=== PATIENT | female | born 1990 | race Caucasian/White ===

== ENCOUNTER 2018-04-26 07:26 | Inpatient (IN) | payer OTHER ==
--- NOTE | 2018-04-26 07:47 | L&D Progress Notes ---
PROGRESS NOTES Datetime Report Generated by CPN: 04/26/2018 07:47 PROGRESS NOTE Impression Other: seizure at home Procedures- Other: monitor Plan: Continue Present Management Plan Other: IV and PIH labs Vital Signs : Reviewed; Within Normal Limits Comment: Pt presented to the ED via ambulance secondary to a witnessed seizure. Pt states that she had a "massive " RUIZ for the past 2 days. According to her , she was sleeping and sat up and said that she could not control her arms. Her laid her on her side, she was biting her tongue, voided on her self and was unresponsive for 5-10 miniutes. She is post-ictal and her memory is slowly returning. No history of pre-ecalmpsia or BP issues with this . MEMBRANES Membranes: Intact FETUS A FHR - Baseline: 140s Monitoring: External US Variability: Moderate 6-25bpm Accelerations: 15X15 Decelerations: None FHR Category: Category I : 36.1 SIGNATURE SIGNATURE: [id number] Signature: with User ID: [email or web address]
[2018-04-26] MEDS ORDERED: MAGNESIUM SULFATE 8 GM/200 ML RTUPB IV ONE (07:55)
--- NOTE | 2018-04-26 08:03 | Admission Physical ---
Datetime Report Generated by CPN: 04/26/2018 08:03 CURRENT ADMISSION Chief Complaint Other: seizure Indication for Induction: Eclampsia - Severe Admit Impression : , Intrauterine Admit Plan: Admit to Unit; Initiate Labor Induction Protocol ALLERGIES Medication Allergies: No Latex: No Latex Allergies OBSTETRICAL HISTORY EDC: 05/23/2018 00:00 : 2 Para: 1 Term: 1 Gestational Diabetes: No Rh Sensitization: No Incompetent Cervix: No LEON: No Infertility: No ART Treatment: No Uterine Anomaly: No IUGR: No Hx Previous C/S: No Macrosomia: No Hx Loss/Stillborn: No PIH: No Hx : No Placenta Previa/Abruption: No Depression/PP Depression: No PTL/PROM: No Post Hemorrhage: No Obstetrical History Comments: 2012 no complications G2- current SEE RECORDS Alcohol: No Marijuana : No Cocaine: No Other Illicit Drugs: No Cigarettes: Never Smoker. [id number] MEDICAL HISTORY Diabetes: No Blood Transfusion: No Pulmonary Disease (Asthma, TB): No Breast Disease: No Hypertension: No Voice Over Announcer Surgery: No Heart Disease: No Hosp/Surgery: No Autoimmune Disorder: No Anesthetic Complications: No Kidney Disease: No Abnormal Pap Smear: No Neuro/Epilepsy: No Psychiatric Disorders: No Other Medical Diseases: No Hepatitis/Liver Disease: No Significant Family History: No Varicosities/Phlebitis: No Trauma/Violence : No Thyroid Dysfunction: No INFECTIOUS HISTORY Gonorrhea: No Genital Herpes: No Chlamydia: No Tuberculosis: No Syphilis: No Hepatitis: No HIV/AIDS Exposure: No Rash or Viral Illness: No HPV: No PHYSICAL EXAM General: Normal HEENT: Normal Neurologic: Normal Thyroid: Normal Heart: Normal Lungs: Normal Breast: Normal Back: Normal Abdomen: Normal Genitourinary Exam: Normal Extremities: Normal DTRs: Normal Pelvic Type: Adequate Vital Signs: Reviewed; Within Normal Limits MEMBRANES Membranes: Intact FETUS A Monitoring: External US FHR- Baseline: 130-140s Variability: Moderate 6-25bpm Accelerations: 15X15 Decelerations: None Admit Comment: Start MgSO4; admit INFORMED CONSENT Signature: with User ID: [email or web address]
[2018-04-26] MEDS ORDERED: MAGNESIUM SULFATE 20 GM/500 ML RTUINJ IV ONE ×2 (08:04→19:14)
[2018-04-26] MEDS ORDERED: PENICILLIN G-K 5 MILLION UNIT VIAL ONE ×4 (08:07→21:20)
[2018-04-26] MEDS ORDERED: OXYTOCIN/NORMAL SALINE 20 UNIT/1,000 ML RTUINJ ONE ×2 (08:07→23:28)
[2018-04-26] MEDS ORDERED: RINGERS SOLUTION,LACTATED 300 ML IV ONE (08:08)
[2018-04-26] MEDS ORDERED: OXYTOCIN/NORMAL SALINE 20 UNIT/1,000 ML RTUINJ IV PRN ×2 (08:08→23:38)
[2018-04-26] MEDS: MAGNESIUM SULFATE 4 GM/100 ML RTUPB IV ONE ×2 (08:08→11:43)
[2018-04-26] MEDS ORDERED: RINGERS SOLUTION,LACTATED 1,000 ML IV PRN (08:08)
[2018-04-26 08:32] LABS: ABSOLUTE EOSINOPHILS # (AUTO) 0.2 10^3/uL (0.0-0.6); ABSOLUTE LYMPHOCYTES (AUTO) 1.7 10^3/uL (0.5-4.7); ABSOLUTE MONOCYTES (AUTO) 0.8 10^3/uL (0.1-1.4); ABSOLUTE NEUT (AUTO) 8.8 10^3/uL (1.7-8.2); BASOPHILS % (AUTO) 0.4 % (0-2); EOSINOPHILS % (AUTO) 1.5 % (0-6); HEMATOCRIT 34.4 % (36.0-47.0); HEMOGLOBIN 11.5 g/dL (12.0-15.5); LYMPHOCYTES % (AUTO) 14.8 % (13-45); MEAN CORPUSCULAR HEMOGLOBIN 25.1 pg (27.0-33.4); MEAN CORPUSCULAR HGB CONC 33.5 g/dL (32.0-36.0); MEAN CORPUSCULAR VOLUME 75 fl (80-97); PLATELET COUNT 223 10^3/uL (150-450); RED CELL DISTRIBUTION WIDTH 14.1 % (11.5-14.0); SEGMENTED NEUTROPHILS % (AUTO) 76.3 % (42-78); TOTAL CELLS COUNTED % (AUTO) 100 %; WHITE BLOOD COUNT 11.5 10^3/uL (4.0-10.5)
[2018-04-26 08:49] LABS: ALANINE AMINOTRANSFERASE 22 U/L (9-52); ALBUMIN 3.1 g/dL (3.5-5.0); ALKALINE PHOSPHATASE 169 U/L (38-126); ANION GAP 10 (5-19); ASPARTATE AMINO TRANSFERASE 35 U/L (14-36); BILIRUBIN,DIRECT 0.1 mg/dL (0.0-0.4); BILIRUBIN,TOTAL 0.2 mg/dL (0.2-1.3); BLOOD UREA NITROGEN 16 mg/dL (7-20); CALCIUM 9.1 mg/dL (8.4-10.2); CARBON DIOXIDE 19 mmol/L (22-30); CHLORIDE 108 mmol/L (98-107); GLUCOSE 86 mg/dL (75-110); POTASSIUM 4.3 mmol/L (3.6-5.0); SODIUM 136.7 mmol/L (137-145); TOTAL PROTEIN 5.8 g/dL (6.3-8.2)
[2018-04-26] MEDS ORDERED: NALBUPHINE HCL INJ 10 MG/1 ML AMPULE ONE (09:16)
[2018-04-26 09:41] LABS: URINE CREATININE 134.4 mg/dL (16-327)
[2018-04-26] MEDS ORDERED: NALBUPHINE HCL INJ 10 MG/1 ML AMPULE INJ ONE (09:48)
[2018-04-26] MEDS ORDERED: PENICILLIN G POTASSIUM 5,000,000 UNIT in DEXTROSE 5%-WATER 100 ML IV ONE (09:49)
[2018-04-26] MEDS ORDERED: MAGNESIUM SULFATE 20 GM/500 ML RTUINJ IV PRN (09:54)
[2018-04-26 10:16] LABS: APPEARANCE,URINE CLOUDY; BILIRUBIN,URINE NEGATIVE (NEGATIVE); GLUCOSE, URINE NEGATIVE (NEGATIVE); KETONES,URINE NEGATIVE (NEGATIVE); LEUKOCYTE ESTERASE,URINE NEGATIVE (NEGATIVE); NITRITE,URINE NEGATIVE (NEGATIVE); PROTEIN,URINE >=500 mg/dL (NEGATIVE); URINE SPECIFIC GRAVITY 1.034; UROBILINOGEN,URINE NEGATIVE mg/dL (<2.0)
[2018-04-26 10:17] LABS: COLOR,URINE YELLOW
[2018-04-26 10:52] LABS: PARTIAL THROMBOPLASTIN TIME 26.6 SEC (23.5-35.8); PROTHROMBIN TIME 12.6 SEC (11.4-15.4)
[2018-04-26] MEDS ORDERED: MISOPROSTOL 0.2 MG TABLET ONE ×2 (10:55→23:35)
[2018-04-26] MEDS ORDERED: LIDOCAINE 1% INJ-PF (10 MG/ML) 30 ML SDV ONE (10:55)
[2018-04-26 10:57] LABS: URINE AMPHETAMINES SCREEN NEGATIVE; URINE BARBITURATES SCREEN NEGATIVE; URINE COCAINE SCREEN NEGATIVE; URINE MARIJUANA (THC) SCREEN NEGATIVE; URINE METHADONE SCREEN NEGATIVE; URINE PHENCYCLIDINE SCREEN NEGATIVE
[2018-04-26 11:00] LABS: URINE BENZODIAZEPINES SCREEN NEGATIVE
[2018-04-26 11:17] LABS: UR PRO/CREAT RATIO RESULT 27.6 mg/mg (0.0-0.2); URINE PROTEIN 3702.9 mg/dL (<12)
[2018-04-26 13:13] LABS: ABSOLUTE LYMPHOCYTES (AUTO) 0.9 10^3/uL (0.5-4.7); ABSOLUTE MONOCYTES (AUTO) 0.4 10^3/uL (0.1-1.4); ABSOLUTE NEUT (AUTO) 12.7 10^3/uL (1.7-8.2); BASOPHILS % (AUTO) 0.3 % (0-2); EOSINOPHILS % (AUTO) 0.1 % (0-6); HEMATOCRIT 35.7 % (36.0-47.0); LYMPHOCYTES % (AUTO) 6.2 % (13-45); MEAN CORPUSCULAR HGB CONC 33.5 g/dL (32.0-36.0); MEAN CORPUSCULAR VOLUME 75 fl (80-97); PLATELET COUNT 234 10^3/uL (150-450); RED BLOOD COUNT 4.78 10^6/uL (3.72-5.28); RED CELL DISTRIBUTION WIDTH 14.6 % (11.5-14.0); SEGMENTED NEUTROPHILS % (AUTO) 90.4 % (42-78); TOTAL CELLS COUNTED % (AUTO) 100 %
[2018-04-26] MEDS: PENICILLIN G POTASSIUM 2,500,000 UNIT in DEXTROSE 5%-WATER 50 ML IV SCH ×3 (13:20→21:27)
[2018-04-26 13:39] LABS: ALANINE AMINOTRANSFERASE 23 U/L (9-52); ALKALINE PHOSPHATASE 188 U/L (38-126); ANION GAP 10 (5-19); ASPARTATE AMINO TRANSFERASE 33 U/L (14-36); BILIRUBIN,DIRECT 0.1 mg/dL (0.0-0.4); BILIRUBIN,TOTAL 0.2 mg/dL (0.2-1.3); BLOOD UREA NITROGEN 15 mg/dL (7-20); CALCIUM 8.5 mg/dL (8.4-10.2); CARBON DIOXIDE 18 mmol/L (22-30); CHLORIDE 106 mmol/L (98-107); GLUCOSE 99 mg/dL (75-110); POTASSIUM 4.2 mmol/L (3.6-5.0); TOTAL PROTEIN 5.5 g/dL (6.3-8.2); URIC ACID 6.8 mg/dL (2.5-6.2)
[2018-04-26] MEDS ORDERED: ONDANSETRON HCL INJ/PF 4 MG/2 ML SDV IV PRN (13:53)
[2018-04-26] MEDS ORDERED: ONDANSETRON HCL INJ/PF 4 MG/2 ML SDV ONE (13:53)
[2018-04-26] MEDS ORDERED: EPHEDRINE SULFATE INJ 50 MG/1 ML AMPULE ONE (14:11)
[2018-04-26] MEDS ORDERED: FENTANYL/BUPIVACAINE/NS/PF 300 MCG/150 ML RTUINJ EPI ONE (14:12)
[2018-04-26] MEDS ORDERED: BUPIVACAINE HCL 0.25 % INJ/PF (2.5 MG/1 ML) 30 ML VIAL ONE (14:12)
--- NOTE | 2018-04-26 15:00 | L&D Progress Notes ---
PROGRESS NOTES Datetime Report Generated by Robbie: 04/26/2018 15:00 PROGRESS NOTE Impression: Normal Progression of Labor; Reassuring Heart Rate Procedures: Sterile Vag Exam Plan: Continue Present Management; Induction; Cervical Ripening Informed Consent Obtained: Vaginal Delivery; Induction of Labor Vital Signs : Reviewed Comment: IOL for ecclampsia with Cooks catheter and pitocin. Reviewed history with family and reviewed need for delivery due to ecclampsia. Pt is having regular uterine ctx. Continue with IOL. Anesthesia aware patient is post ictal and we are proceeding with IOL. Coag labs pending. (Annotations: Data stored by Robbie on behalf of user) VAGINAL EXAM Dilatation: 2 Effacement: 50 Station: -2 Contractions: q 2-3 Dilitation: 2.0 Effacement: 50 Station: -2 Contractions: irritability MEMBRANES Membranes: Intact FETUS A FHR - Baseline: 125 Monitoring: External US Variability: Moderate 6-25bpm Accelerations: 15X15 Decelerations: None FHR Category: Category I FHR Comments: CAT I : 36.1 FETUS C SIGNATURE: [id number];[id number] SIGNATURE: [id number] Signature: with User ID: [email or web address]
--- NOTE | 2018-04-26 17:34 | L&D Progress Notes ---
PROGRESS NOTES Datetime Report Generated by CPN: 04/26/2018 17:33 PROGRESS NOTE Impression: Normal Progression of Labor; Reassuring Heart Rate Procedures: Sterile Vag Exam Plan: Continue Present Management; Induction Informed Consent Obtained: Vaginal Delivery; Induction of Labor Vital Signs : Reviewed Comment: called to eval pt she thought her water broke. On exam membranes felt throughout. Attempted to AROM with amnihook but due to patient discomfort unable to do so. However, upon patient sitting up significant fluid noted. SROM. clear fluid. Anticipate VAGINAL EXAM Dilatation: 5 Effacement: 70 Station: -3 Contractions: q 2-3 FETUS A FHR - Baseline: 120 Variability: Moderate 6-25bpm Accelerations: 15X15 Decelerations: None FHR Category: Category I FETUS C SIGNATURE: [id number];[id number] Signature: with User ID: [email or web address]
[2018-04-26] MEDS ORDERED: BUTALB/ACETAMINOPHEN/CAFFEINE 1 TAB EACH ONE (18:13)
[2018-04-26 19:46] LABS: ABSOLUTE MONOCYTES (AUTO) 0.5 10^3/uL (0.1-1.4); ABSOLUTE NEUT (AUTO) 13.5 10^3/uL (1.7-8.2); BASOPHILS % (AUTO) 0.1 % (0-2); HEMATOCRIT 37.4 % (36.0-47.0); HEMOGLOBIN 12.3 g/dL (12.0-15.5); LYMPHOCYTES % (AUTO) 6.9 % (13-45); MEAN CORPUSCULAR HEMOGLOBIN 24.8 pg (27.0-33.4); MEAN CORPUSCULAR VOLUME 75 fl (80-97); MONOCYTES % (AUTO) 3.5 % (3-13); PLATELET COUNT 249 10^3/uL (150-450); RED BLOOD COUNT 4.99 10^6/uL (3.72-5.28); RED CELL DISTRIBUTION WIDTH 14.6 % (11.5-14.0); SEGMENTED NEUTROPHILS % (AUTO) 89.5 % (42-78); TOTAL CELLS COUNTED % (AUTO) 100 %; WHITE BLOOD COUNT 15.1 10^3/uL (4.0-10.5)
--- NOTE | 2018-04-26 20:02 | L&D Progress Notes ---
PROGRESS NOTES Datetime Report Generated by RISSA: 04/26/2018 20:02 PROGRESS NOTE Impression: Normal Progression of Labor Procedures- Other: labs Plan: Continue Present Management; Induction; Cervical Ripening Informed Consent Obtained: Vaginal Delivery; Induction of Labor; Risks, Benefits and Alternatives Discussed Vital Signs : Reviewed Comment: reviewed q 4-6 hours labs depending on results. CMP pending from 1900 but platlets are stable. Reviewed with patient and family that plan to have IM/Hospitalist see her tomorrow to evaluate for any other medical issues that could have contributed to her eclamptic seizure today. Also reviewed with patient and family that there is a risk of her having another seizure therefore will continue mag sulfate for 24 hours after delivery and monitor closely. Would recommend that she see Neurology at least once to evaluate for any further need for f/u (although there is increased relative risk of seizure disorder the absolute risk is low). THey are very concerned and have expressed displeasure with care received elsewhere therefore would reccommend to cover all bases. Will need to be discharged home on medication for BP or at the very least have very close f/u due to increased risk of relapse with preeclampsia/eclampsia. she is not in active labor yet with disfunctional contraction pattern. will continue with increase pitocin. reviewed Prot:Cr ratio very high 27.6 and also uric acid elevated. LFTs and Platlets stable and normal at this time. continue current management. VAGINAL EXAM Dilatation: 5 Effacement: 70 Station: -3 Contractions: irreg FETUS A FHR - Baseline: 12 Monitoring: External US Variability: Moderate 6-25bpm Accelerations: 15X15 Decelerations: None FHR Category: Category I FETUS C SIGNATURE: [id number];[id number] Signature: with User ID: [email or web address]
[2018-04-26 20:03] LABS: ALANINE AMINOTRANSFERASE 27 U/L (9-52); ALBUMIN 3.1 g/dL (3.5-5.0); ALKALINE PHOSPHATASE 195 U/L (38-126); ANION GAP 11 (5-19); ASPARTATE AMINO TRANSFERASE 34 U/L (14-36); BILIRUBIN,DIRECT 0.1 mg/dL (0.0-0.4); BILIRUBIN,TOTAL 0.2 mg/dL (0.2-1.3); BLOOD UREA NITROGEN 13 mg/dL (7-20); CALCIUM 8.2 mg/dL (8.4-10.2); CARBON DIOXIDE 19 mmol/L (22-30); CHLORIDE 103 mmol/L (98-107); GLUCOSE 106 mg/dL (75-110); POTASSIUM 4.9 mmol/L (3.6-5.0); SODIUM 132.9 mmol/L (137-145); TOTAL PROTEIN 5.7 g/dL (6.3-8.2); URIC ACID 6.5 mg/dL (2.5-6.2)
[2018-04-26] MEDS ORDERED: PSEUDOEPHEDRINE HCL 30 MG TABLET PO PRN (23:38)
[2018-04-26] MEDS ORDERED: DIPH/PERTUSS(ACELL)/TETANUS VAC/PF 0.5 ML SYR (>=10YO) IM PRN (23:38)
[2018-04-26] MEDS ORDERED: BENZOCAINE/MENTHOL AEROSOL SPRAY 56 ML TOP PRN (23:38)
[2018-04-26] MEDS ORDERED: PROMETHAZINE HCL 25 MG TABLET PO PRN (23:38)
[2018-04-26] MEDS ORDERED: MEASLES,MUMPS&RUBELLA VACC/PF 0.5 ML VIAL SUBCUT PRN (23:38)
[2018-04-26] MEDS ORDERED: NA PHOS,M-B/NA PHOS,DI-BA (ADULT) 133 ML ENEMA PR PRN (23:38)
[2018-04-26] MEDS ORDERED: DIPHENHYDRAMINE HCL 25 MG CAPSULE PO PRN (23:38)
[2018-04-26] MEDS ORDERED: GLYCERIN/WITCH HAZEL LEAF 1 EACH MED..PAD TP PRN (23:38)
[2018-04-26] MEDS ORDERED: DIBUCAINE 1% OINTMENT 28 GM TP PRN (23:38)
[2018-04-26] MEDS ORDERED: PROMETHAZINE HCL INJ 25 MG/1 ML VIAL IV PRN (23:38)
[2018-04-26] MEDS ORDERED: MISOPROSTOL 0.2 MG TABLET PR PRN (23:38)
[2018-04-26] MEDS ORDERED: PROMETHAZINE HCL 25 MG SUPP.RECT PR PRN (23:38)
[2018-04-26] MEDS ORDERED: ACETAMINOPHEN 325 MG TABLET PO PRN (23:38)
[2018-04-26] MEDS ORDERED: ACETAMINOPHEN WITH CODEINE #3 TABLET PO PRN ×2 (23:38)
[2018-04-26] MEDS ORDERED: MAGNESIUM HYDROXIDE SUSP 30 ML UDCUP PO PRN (23:38)
[2018-04-26] MEDS ORDERED: ZOLPIDEM TARTRATE 5 MG TABLET PO PRN (23:38)
[2018-04-27] MEDS ORDERED: ACETAMINOPHEN WITH CODEINE #3 TABLET ONE
[2018-04-27] MEDS ORDERED: IBUPROFEN 800 MG TABLET ONE
[2018-04-27] MEDS: MAGNESIUM SULFATE 20 GM/500 ML RTUINJ IV PRN ×2 (00:03→12:03)
[2018-04-27] MEDS ORDERED: HYDRALAZINE HCL INJ/PF 20 MG/1 ML SDV IV ONE (00:35)
[2018-04-27] MEDS ORDERED: HYDRALAZINE HCL INJ/PF 20 MG/1 ML SDV ONE (00:36)
[2018-04-27 07:20] LABS: HEMATOCRIT 32.3 % (36.0-47.0); HEMOGLOBIN 10.5 g/dL (12.0-15.5); MEAN CORPUSCULAR HEMOGLOBIN 24.6 pg (27.0-33.4); MEAN CORPUSCULAR HGB CONC 32.7 g/dL (32.0-36.0); MEAN CORPUSCULAR VOLUME 75 fl (80-97); PLATELET COUNT 265 10^3/uL (150-450); RED BLOOD COUNT 4.29 10^6/uL (3.72-5.28); RED CELL DISTRIBUTION WIDTH 14.7 % (11.5-14.0); WHITE BLOOD COUNT 17.7 10^3/uL (4.0-10.5)
[2018-04-27 07:39] LABS: ALANINE AMINOTRANSFERASE 29 U/L (9-52); ALBUMIN 2.3 g/dL (3.5-5.0); ALKALINE PHOSPHATASE 142 U/L (38-126); ANION GAP 5 (5-19); ASPARTATE AMINO TRANSFERASE 39 U/L (14-36); BILIRUBIN,DIRECT 0.1 mg/dL (0.0-0.4); BILIRUBIN,TOTAL 0.1 mg/dL (0.2-1.3); BLOOD UREA NITROGEN 11 mg/dL (7-20); CARBON DIOXIDE 21 mmol/L (22-30); CHLORIDE 104 mmol/L (98-107); GLUCOSE 99 mg/dL (75-110); POTASSIUM 4.6 mmol/L (3.6-5.0); SODIUM 130.1 mmol/L (137-145); TOTAL PROTEIN 4.6 g/dL (6.3-8.2); URIC ACID 6.3 mg/dL (2.5-6.2)
[2018-04-27 07:56] LABS: CALCIUM 6.8 mg/dL (8.4-10.2)
--- NOTE | 2018-04-27 08:19 | L&D Progress Notes ---
PROGRESS NOTES Datetime Report Generated by CPN: 04/27/2018 08:19 PROGRESS NOTE Impression: Eclampsia - Severe Plan: Continue Present Management Informed Consent Obtained: Risks, Benefits and Alternatives Discussed Vital Signs : Reviewed Comment: now . No further seizures. Will obtain CT scan for eval of head now that delivered. Pt is not diuresing yet. will need to continue magnesium until 24 hours pp. then will need to start BP meds and likely go home with BP meds. No e/o HELLP syndrome. will get hospitalist consult for help with management of electrolyte abnormalities as well. Would still recommend Neuro consult as outpatient pp. Pt is doing well. Continue current care for now. VAGINAL EXAM Dilitation: 10.0 Dilitation: 9.0 Dilitation: 6.0 Effacement: 100 Effacement: 90 Effacement: 80 Station: 1 Station: -1 Station: -1 FETUS C SIGNATURE: [id number];[id number] Signature: with User ID: [email or web address]
[2018-04-27] MEDS ORDERED: SENNOSIDES/DOCUSATE 8.6-50 MG 1 EACH TABLET ONE (09:22)
[2018-04-27] MEDS ORDERED: PRENATAL VITAMIN W DHA CAPSULE PO ONE (09:22)
[2018-04-27] MEDS ORDERED: FAMOTIDINE 20 MG TABLET ONE (09:22)
[2018-04-27] MEDS ORDERED: DOCUSATE SODIUM 100 MG CAPSULE ONE ×2 (09:22→18:03)
[2018-04-27] MEDS ORDERED: FERROUS SULFATE 325 MG TABLET PO ONE ×2 (09:23→18:04)
[2018-04-27] MEDS ORDERED: MAGNESIUM SULFATE 20 GM/500 ML RTUINJ IV ONE (09:46)
[2018-04-27] MEDS: DOCUSATE SODIUM 100 MG CAPSULE PO SCH ×2 (10:06→18:09)
[2018-04-27] MEDS: FAMOTIDINE 20 MG TABLET PO SCH (10:07)
[2018-04-27] MEDS: PRENATAL VITAMIN W DHA CAPSULE PO SCH (10:07)
[2018-04-27] MEDS: FERROUS SULFATE 325 MG TABLET PO SCH ×2 (10:08→18:10)
[2018-04-27] MEDS: SENNOSIDES/DOCUSATE 8.6-50 MG 1 EACH TABLET PO SCH (10:08)
--- NOTE | 2018-04-27 14:36 | RADIOLOGY REPORT (SQ) ---
EXAM DESCRIPTION: CT HEAD WITH COMPLETED DATE/TIME: 04/27/2018 2:23 pm REASON FOR STUDY: Eclamptic Seizure yesterday, now COMPARISON: None. TECHNIQUE: Axial images acquired through the brain both prior to and following the uncomplicated adm inistration of intravenous contrast. Images reviewed with bone, brain and subdural windows. Addition al sagittal and coronal reconstructions were generated. Images stored on PACS. All CT scanners at this facility use dose modulation, iterative reconstruction, and/or weight based d osing when appropriate to reduce radiation dose to as low as reasonably achievable (ALARA). [facility]: Dose Right [facility]: CareDose [facility]: Dose Right [facility]: Teradose 4D [facility]: [employer] CONTRAST TYPE AND DOSE: contrast/concentration: Isovue 350.00 mg/ml; Total Contrast Delivered: 50.0 ml; Total Saline Delivered: 51.0 ml RENAL FUNCTION: None required. The patient is less than 50 years old. RADIATION DOSE: CT Rad equipment meets quality standard of care and radiation dose reduction techniq ues were employed. CTDIvol: 48.6 - 48.7 mGy. DLP: 2003 mGy-cm.. LIMITATIONS: None. FINDINGS: VENTRICLES: Normal size and contour. CEREBRUM: There is a subcortical hypodensity of the posterior right frontal lobe prefrontal gyrus (se ellie 6, image 30, series 900, image 40). No evident contrast enhancement. Otherwise normal bang-whi te differentiation and appearance of the cerebrum. CEREBELLUM: No masses. No hemorrhage. No alteration of density. No evidence for acute infarction. No enhancing lesions. EXTRA-AXIAL SPACES: No fluid collections. No enhancing lesions. ORBITS AND GLOBE: No intra- or extraconal masses. Normal contour of globe without masses. CALVARIUM: No fracture. PARANASAL SINUSES: No fluid or mucosal thickening. SOFT TISSUES: No mass or hematoma. OTHER: No other significant finding. IMPRESSION: There is a subcortical hypodensity of the posterior right frontal lobe prefrontal gyrus. No evident contrast enhancement. Otherwise normal bang-white differentiation and appearance of the c erebrum. Findings are of uncertain significance although most common etiologies of this finding such as infarction and small vessel white matter disease are unusual for patient age and concerning in th e setting of new onset seizure. Differential considerations include encephalitis, infarction, and no nenhancing underlying mass. Recommend contrast-enhanced MRI to further evaluate. EVIDENCE OF ACUTE STROKE: NO. TECHNICAL DOCUMENTATION: JOB ID: [id number] Quality ID # [id number]: Final reports with documentation of one or more dose reduction techniques (e.g., Au tomated exposure control, adjustment of the mA and/or kV according to patient size, use of iterative reconstruction technique) 2010 [employer]- All Rights Reserved Reading location - IP/workstation name: [id number]
[2018-04-27] MEDS ORDERED: ACETAMINOPHEN 325 MG TABLET ONE (14:44)
--- NOTE | 2018-04-27 23:36 | PDOC CONSULTATION ---
Consultation Consult Date: 04/27/18 Attending physician:: EDINSON MEJIA Consult reason:: ecclampsia, hypocalcemia History of Present Illness Admission Date/PCP: 04/26/18 08:11 Patient complains of: Swelling of the hands and feet, headache and seizure History of Present Illness: GHASSAN GROSS is a 27 year old female who began to notice hand swelling on approximately over a night. 2 days later she began to notice swelling in her legs. She also observed some facial swelling. In the morning of May 04 she experienced a seizure. EMS was called and she was transferred to [facility]. Upon evaluation she was found to be experiencing severe eclampsia. Labor was induced with successful delivery. The patient has been receiving intravenous magnesium sulfate and has not exhibited any further seizure activity. I have been asked see the patient with regards to her hypertension as well as hypercalcemia. Past Medical History Cardiac Medical History: Denies: Atrial Fibrillation, Congestive Heart Failure, DVT, Hypertension Pulmonary Medical History: Denies: Asthma, Chronic Obstructive Pulmonary Disease (COPD), Sleep Apnea EENT Medical History: Denies: Cataracts, Ears, Nose, Throat Neurological Medical History: Denies: Hemorrhagic CVA, Ischemic CVA, Seizures Endocrine Medical History: Denies: Diabetes Mellitus Type 1, Gestational Diabetes Renal/ Medical History: Denies: Chronic Kidney Disease Malignancy Medical History: Denies: None GI Medical History: Denies: Cirrhosis, Crohn's Disease, Gastroesophageal Reflux Disease, Hepatitis, Ulcerative Colitis Musculoskeltal Medical History: Denies: Arthritis, Fibromyalgia Skin Medical History: Denies: Eczema, Psoriasis Psychiatric Medical History: Denies: Alcohol Dependency, Bipolar Disorder, Depression, Post Traumatic Stress Disorder, Substance Abuse, Tobacco Dependency Hematology: Reports: Anemia Past Surgical History Past Surgical History: Denies: None Social History Information Source: Patient Lives with: Family Smoking Status: Never Smoker Frequency of Alcohol Use: None Hx Recreational Drug Use: No Hx Prescription Drug Abuse: No - Advance Directive Resuscitation Status: Full Code Surrogate healthcare decision maker:: The patient's who was present at the bedside. Family History Family History: Reviewed & Not Pertinent Parental Family History Reviewed: Yes Children Family History Reviewed: Yes Sibling(s) Family History Reviewed.: Yes Medication/Allergy Home Medications: Acetaminophen [Tylenol 325 mg Tablet] 650 mg PO Q6HP PRN 04/26/18 Allergies/Adverse Reactions: No Known Allergies Allergy (Unverified 04/26/18 08:41) Review of Systems Constitutional: PRESENT: fatigue, headache(s) Eyes: PRESENT: visual disturbances Nose, Mouth, and Throat: PRESENT: headache(s). ABSENT: sore throat Cardiovascular: ABSENT: chest pain, palpitations Respiratory: ABSENT: cough, dyspnea Gastrointestinal: PRESENT: abdominal pain - Intermittent crampy sensation, nausea - Occasional. ABSENT: diarrhea, heartburn, vomiting Genitourinary: ABSENT: dysuria Integumentary: ABSENT: lesions, rash Neurological: ABSENT: abnormal gait, abnormal speech, confusion, dizziness, focal weakness, syncope Psychiatric: ABSENT: anxiety, depression, homidical ideation, suicidal ideation Endocrine: ABSENT: cold intolerance, heat intolerance, polydipsia, polyuria Hematologic/Lymphatic: ABSENT: easy bleeding, easy bruising Allergic/Immunologic: ABSENT: seasonal rhinorrhea Physical Exam Vital Signs: Intake & Output 04/26/18 04/27/18 04/28/18 06:59 06:59 06:59 Intake Total 608 300 Balance 608 300 Weight 63.503 kg General appearance: PRESENT: no acute distress, cooperative, well-developed Head exam: PRESENT: normocephalic Eye exam: PRESENT: conjunctiva pale, EOMI. ABSENT: scleral icterus Ear exam: PRESENT: normal external ear exam Mouth exam: PRESENT: moist Respiratory exam: PRESENT: clear to auscultation maricruz, symmetrical, unlabored. ABSENT: rales, rhonchi, wheezes Cardiovascular exam: PRESENT: RRR, +S1, +S2 GI/Abdominal exam: PRESENT: soft, tenderness - Rectal exam: PRESENT: deferred Extremities exam: PRESENT: joint swelling - Slight puffiness in hands and feet almost resolved per patient. No pitting edema Musculoskeletal exam: PRESENT: normal inspection Neurological exam: PRESENT: alert, awake, oriented to person, oriented to place, oriented to time, oriented to situation, CN II-XII grossly intact Psychiatric exam: PRESENT: appropriate affect. ABSENT: agitated, anxious Results Laboratory Results: 04/27/18 07:00 04/27/18 07:00 04/26/18 04/26/18 04/27/18 19:12 19:12 07:00 WBC 15.1 H RBC 4.99 Hgb 12.3 Hct 37.4 MCV 75 L MCH 24.8 L MCHC 33.0 RDW 14.6 H Plt Count 249 Seg Neutrophils % 89.5 H Lymphocytes % 6.9 L Monocytes % 3.5 Eosinophils % 0.0 Basophils % 0.1 Absolute Neutrophils 13.5 H Absolute Lymphocytes 1.0 Absolute Monocytes 0.5 Absolute Eosinophils 0.0 Absolute Basophils 0.0 Sodium 132.9 L 130.1 L Potassium 4.9 4.6 Chloride 103 104 Carbon Dioxide 19 L 21 L Anion Gap 11 5 BUN 13 11 Creatinine 0.89 0.93 Est GFR ( Amer) > 60 > 60 Est GFR (Non-Af Amer) > 60 > 60 Glucose 106 99 Uric Acid 6.5 H 6.3 H Calcium 8.2 L 6.8 L* Total Bilirubin 0.2 0.1 L AST 34 39 H ALT 27 29 Alkaline Phosphatase 195 H 142 H Total Protein 5.7 L 4.6 L Albumin 3.1 L 2.3 L 04/27/18 07:00 WBC 17.7 H RBC 4.29 Hgb 10.5 L Hct 32.3 L MCV 75 L MCH 24.6 L MCHC 32.7 RDW 14.7 H Plt Count 265 Seg Neutrophils % Lymphocytes % Monocytes % Eosinophils % Basophils % Absolute Neutrophils Absolute Lymphocytes Absolute Monocytes Absolute Eosinophils Absolute Basophils Sodium Potassium Chloride Carbon Dioxide Anion Gap BUN Creatinine Est GFR ( Amer) Est GFR (Non-Af Amer) Glucose Uric Acid Calcium Total Bilirubin AST ALT Alkaline Phosphatase Total Protein Albumin Assessment & Plan - Diagnosis (1) Eclampsia Is this a current diagnosis for this admission?: Yes Plan: The patient experienced a seizure at home and was transported to the hospital. Neighbor was induced with successful delivery. The patient was placed on magnesium sulfate and has not experienced any additional seizure activity. For her elevated blood pressure the patient received as needed intravenous hydralazine. Her blood pressure is stable this morning. If there is ongoing hypertension medications that could be used that would be safe during include metoprolol, doses of hydrochlorothiazide less than 50 mg/day and possibly Spironolactone. Based on the blood pressure tomorrow consideration of chronic use of medication will be given. (2) Hypocalcemia Is this a current diagnosis for this admission?: Yes Plan: The serum calcium was 6.8 this morning. The serum albumin was 2.3. This corrects to just under the lower limit of normal. The patient is receiving ongoing magnesium sulfate as well. This will also shift the serum calcium. I have ordered an ionized calcium level in the morning as well as a basic metabolic panel, magnesium and albumin. Before administering any intravenous calcium I would like to see where the calcium levels settle after the intravenous magnesium is completed. (3) Seizure Is this a current diagnosis for this admission?: Yes Plan: Please also see obstetrics note. The seizure is related to the eclampsia. A CT scan of the brain was performed and a hypodense lesion was noted in the posterior aspect of the right frontal lobe. We will be obtaining an MRI with contrast for further delineation. With the intravenous magnesium the patient has not exhibited any further seizure activity. Await results of the MRI before considering further treatment options. (4) Hyponatremia Is this a current diagnosis for this admission?: Yes Plan: Serum sodium at time of admission was 136.7. It has slowly drifted down each day and is currently 130. We will recheck a serum sodium level in the morning before making any adjustments to the treatment plan. - Time Time Spent: 30 to 50 Minutes Medications reviewed and adjusted accordingly: Yes Anticipated discharge: Home - Plan Summary Plan Summary: Thank you for allowing me to participate in this patient's care. We will continue to follow with you and review the laboratory studies as well as diagnostic imaging.
[2018-04-28 08:44] LABS: ALBUMIN 2.3 g/dL (3.5-5.0); BLOOD UREA NITROGEN 14 mg/dL (7-20); CALCIUM 7.1 mg/dL (8.4-10.2); GLUCOSE 70 mg/dL (75-110); POTASSIUM 4.3 mmol/L (3.6-5.0)
[2018-04-28 08:49] LABS: CARBON DIOXIDE 25 mmol/L (22-30); CHLORIDE 109 mmol/L (98-107); SODIUM 136.6 mmol/L (137-145)
[2018-04-28 08:56] LABS: ANION GAP 3 (5-19)
[2018-04-28] MEDS ORDERED: PRENATAL VITAMIN W DHA CAPSULE PO ONE (10:05)
[2018-04-28] MEDS ORDERED: FAMOTIDINE 20 MG TABLET ONE (10:06)
[2018-04-28] MEDS ORDERED: SENNOSIDES/DOCUSATE 8.6-50 MG 1 EACH TABLET ONE (10:06)
[2018-04-28] MEDS ORDERED: DOCUSATE SODIUM 100 MG CAPSULE ONE ×2 (10:06→10:11)
[2018-04-28] MEDS ORDERED: FERROUS SULFATE 325 MG TABLET PO ONE (10:07)
[2018-04-28] MEDS: FERROUS SULFATE 325 MG TABLET PO SCH ×2 (10:24→22:34)
[2018-04-28] MEDS: PRENATAL VITAMIN W DHA CAPSULE PO SCH (10:24)
[2018-04-28] MEDS: DOCUSATE SODIUM 100 MG CAPSULE PO SCH ×2 (10:24→22:34)
[2018-04-28] MEDS: FAMOTIDINE 20 MG TABLET PO SCH ×3 (10:24→22:09)
[2018-04-28] MEDS: SENNOSIDES/DOCUSATE 8.6-50 MG 1 EACH TABLET PO SCH (10:25)
[2018-04-28] MEDS ORDERED: LORAZEPAM INJ 2 MG/1 ML VIAL IV ONE (16:02)
[2018-04-28] MEDS ORDERED: LORAZEPAM INJ 2 MG/1 ML VIAL ONE (16:06)
--- NOTE | 2018-04-28 20:09 | PDOC PROGRESS REPORT ---
Subjective Progress Note for:: 04/28/18 Subjective:: The patient denies headache. She in fact is ambulating around the room. Reason For Visit: ECLAMPSIA Physical Exam Vital Signs: Temp Pulse Resp BP Pulse Ox 98.6 F 71 16 140/84 H 96 04/28/18 15:27 04/28/18 15:27 04/28/18 15:27 04/28/18 15:27 04/28/18 15:27 Intake & Output 04/27/18 04/28/18 04/29/18 06:59 06:59 06:59 Intake Total 608 300 Balance 608 300 Weight 63.503 kg General appearance: PRESENT: no acute distress, cooperative, well-developed Respiratory exam: PRESENT: clear to auscultation maricruz Cardiovascular exam: PRESENT: RRR Neurological exam: PRESENT: alert, awake, oriented to person, oriented to place, oriented to time, oriented to situation, CN II-XII grossly intact Psychiatric exam: PRESENT: appropriate affect, normal mood. ABSENT: agitated, anxious Results Laboratory Results: 04/27/18 07:00 04/28/18 07:34 04/28/18 04/28/18 07:34 07:34 Sodium 136.6 L Potassium 4.3 Chloride 109 H Carbon Dioxide 25 Anion Gap 3 L BUN 14 Creatinine 0.78 Est GFR ( Amer) > 60 Est GFR (Non-Af Amer) > 60 Glucose 70 L Calcium 7.1 L Ionized Calcium King 1.06 L Magnesium 3.8 H Albumin 2.3 L Impressions: Head CT 04/27/18 08:00 IMPRESSION: There is a subcortical hypodensity of the posterior right frontal lobe prefrontal gyrus. No evident contrast enhancement. Otherwise normal bang- white differentiation and appearance of the cerebrum. Findings are of uncertain significance although most common etiologies of this finding such as infarction and small vessel white matter disease are unusual for patient age and concerning in the setting of new onset seizure. Differential considerations include encephalitis, infarction, and nonenhancing underlying mass. Recommend contrast- enhanced MRI to further evaluate. EVIDENCE OF ACUTE STROKE: NO. Assessment & Plan - Diagnosis (1) Eclampsia Is this a current diagnosis for this admission?: Yes Plan: The patient's blood pressure has been stable today. She has had no recurrent seizure activity. MRI on the brain further detailed the hypodensity. It was felt to be posterior reversible encephalopathy syndrome. These findings are consistent with a patient with eclampsia. As discussed with radiology no follow-up MRI is required unless the patient has recurrent symptoms. (2) Hypocalcemia Is this a current diagnosis for this admission?: Yes Plan: Slowly improving off of the magnesium infusion (3) Seizure Is this a current diagnosis for this admission?: Yes Plan: No further seizure activity (4) Hyponatremia Is this a current diagnosis for this admission?: Yes Plan: Resolved - Time Time Spent with patient: 15-24 minutes Medications reviewed and adjusted accordingly: Yes Anticipated discharge: Home Within: within 24 hours - Plan Summary Plan Summary: I did discuss the results with Dr. Rao. The patient's blood pressure has been stable for today. She will observe the patient overnight. The patient will likely discharge tomorrow. Thank you for allowing me to participate in the care of this very pleasant patient.
--- NOTE | 2018-04-28 20:21 | RADIOLOGY REPORT (SQ) ---
EXAM DESCRIPTION: MR BRAIN WITHOUT THEN WITH IV CONTRAST COMPLETED DATE/TME: 04/28/2018 00:00 CLINICAL HISTORY: 27 years, Female, recomended be radiologist after head ct COMPARISON: CT brain 04/27/2018 TECHNIQUE: [id number] Images stored on PACS. LIMITATIONS: None. FINDINGS: Multiplanar multisequence MR imaging of the brain was performed prior to and following IV contrast. Sagittal midline anatomic structures demonstrate an unremarkable appearance to the pituitary and suprasellar regions. There is rather extensive motion artifact which degrades image quality. The globes are intact. The paranasal sinuses and mastoid air cells are unremarkable. Normal flow void in the visualized intracranial vessels. The visualized cranial nerve complex these are unremarkable. There is no intra or extra-axial hemorrhage. Diffusion-weighted images demonstrate a single punctate focus of diffusion restriction in the high right frontal parietal region measuring 4.1 mm. This does not demonstrate low signal on ADC map. This may in part reflect an area of T2 "shine through", as there is also curvilinear increased T2/FLAIR signal in this region as well as in the left frontoparietal region and posterior parietal regions bilaterally. These areas do not enhance. No discrete or defined mass. No midline shift. IMPRESSION: Abnormal areas of increased T2/FLAIR signal in the frontoparietal regions bilaterally. These areas do not enhance. No discrete or defined mass. These do not have typical appearance for demyelinating plaque formation. Other etiologies should also be considered, including but not limited to nonspecific encephalopathy, posterior reversible encephalopathy syndrome, acute disseminated encephalomyelitis, with glioma or low-grade malignancy felt less likely. Close clinical follow-up recommended. Progressive imaging/repeat imaging following appropriate therapy may also be of benefit. copyright 2010 [employer]- All Rights Reserved
[2018-04-28] MEDS: PENICILLIN G POTASSIUM 2,500,000 UNIT in DEXTROSE 5%-WATER 50 ML IV SCH ×6 (22:06→22:35)
[2018-04-28] MEDS: IBUPROFEN 800 MG TABLET PO SCH ×5 (22:06→22:34)
[2018-04-29] MEDS: PENICILLIN G POTASSIUM 2,500,000 UNIT in DEXTROSE 5%-WATER 50 ML IV SCH ×2 (03:13→05:18)
[2018-04-29] MEDS: IBUPROFEN 800 MG TABLET PO SCH (06:14)
[2018-04-29 08:40] LABS: HEPATITIS C VIRUS AB <0.1 s/co ratio (0.0-0.9)
[2018-04-29] MEDS: FERROUS SULFATE 325 MG TABLET PO SCH (10:06)
[2018-04-29] MEDS: FAMOTIDINE 20 MG TABLET PO SCH (10:06)
[2018-04-29] MEDS: PRENATAL VITAMIN W DHA CAPSULE PO SCH (10:06)
[2018-04-29] MEDS: DOCUSATE SODIUM 100 MG CAPSULE PO SCH (10:07)
[2018-04-29] MEDS: SENNOSIDES/DOCUSATE 8.6-50 MG 1 EACH TABLET PO SCH (10:07)
[2018-04-29 11:07] VITALS: BP 140/84
--- NOTE | 2018-04-29 11:10 | PDOC PROGRESS REPORT ---
Subjective-OB Progress Note for:: 04/29/18 Subjective: Pt doing well. Denies h/a, vis changes, abd pain. No concerns. She was seen and cleared by hospitalist yesterday. BPs are stable. Labs stable. Physical Exam (OB) Vital Signs: Temp Pulse Resp BP Pulse Ox 98.3 F 79 16 137/94 H 98 04/29/18 07:04 04/29/18 07:04 04/29/18 07:04 04/29/18 07:04 04/29/18 07:04 Intake & Output 04/28/18 04/29/18 04/30/18 06:59 06:59 06:59 Intake Total 300 Balance 300 - PIH/Pre-Eclampsia DTR's: 1 + Clonus: Negative Headache: Absent Epigastric Pain: No Visual Changes: No - Lochia Lochia Amount: Scant < 10 ml Lochia Color: Rubra/Red - Abdomen Description: Soft Hernia Present: No Fundal Description: Firm, Midline Fundal Height: u/u - u/2 Objective-Diagnostic Laboratory: 04/27/18 07:00 04/28/18 07:34 Assessment and Plan(PN) - Assessment and Plan (1) Eclampsia Is this a current diagnosis for this admission?: Yes (2) Obstetrical laceration, second degree Is this a current diagnosis for this admission?: Yes (3) Qualifiers: Weeks of gestation: 36 weeks Qualified Code(s): Z3A.36 - 36 weeks gestation of Is this a current diagnosis for this admission?: Yes (4) Vaginal delivery Is this a current diagnosis for this admission?: Yes - Time Spent with Patient Time with patient: Less than 15 minutes Medications reviewed and adjusted accordingly: Yes - Disposition Anticipated Discharge: Home Within: within 24 hours
--- NOTE | 2018-04-29 11:12 | PDOC DISCHARGE SUMMARY ---
Final Diagnosis Discharge Date: 04/29/18 - Final Diagnosis (1) Eclampsia Is this a current diagnosis for this admission?: Yes (2) Obstetrical laceration, second degree Is this a current diagnosis for this admission?: Yes (3) Is this a current diagnosis for this admission?: Yes (4) Vaginal delivery Is this a current diagnosis for this admission?: Yes Discharge Data - Discharge Medication Home Medications: Acetaminophen [Tylenol 325 mg Tablet] 650 mg PO Q6HP PRN 04/26/18 Reason(s) for Admission: Induction of Labor, Obstetric Complications Procedures: NST, Management of Medical Complications, Management of Obstetric Complications Intrapartum Procedure(s): Spontaneous Vaginal Delivery Complication(s): Laceration-Perineal Laceration-Degree: 2nd - Diagnosis Test Laboratory: Temp Pulse Resp BP Pulse Ox 98.3 F 79 16 140/84 H 98 04/29/18 11:05 04/29/18 11:05 04/29/18 11:05 04/29/18 11:05 04/29/18 11:05 04/26/18 04/26/18 04/26/18 08:05 09:00 12:57 RBC 4.60 4.78 Hgb 11.5 L 12.0 Hct 34.4 L 35.7 L Urine Opiates Screen NEGATIVE 04/26/18 04/27/18 19:12 07:00 RBC 4.99 4.29 Hgb 12.3 10.5 L Hct 37.4 32.3 L Urine Opiates Screen - Discharge information/Instructions Discharge Activity: Balance Activity w/Rest, No Lifting Over 10 Pounds, No Lifting/Push/Pulling, Pelvic Rest, No tub bath Discharge Diet: Regular Disposition: HOME, SELF-CARE Follow up with: [facility] in: 3, 5, Days
[2018-04-29 15:36] LABS: HEPATITIS C QUANTITATION HCV Not Detected IU/mL (.)
--- NOTE | 2018-05-03 19:40 | Delivery Summary ---
Del Sum A-C Datetime Report Generated by CPN: 05/03/2018 19:39 DELIVERY PERSONNEL DELIVERY PERSONNEL: [id number] Delivery Doctor:: Yuridia Ewing MD Labor and Delivery Nurse:: Dodie Ford RNairline reservationist Nurse:: Myah Ordonez RN Nursery Nurse:: Fouzia Mar RN MATERNAL INFORMATION Delivery Anesthesia: Epidural Medications After Delivery: Pitocin Drip 20 Units/1000ml NSS; Cytotec 1000mcg Per Rectum/Vagina Meds After Delivery Comment: 1600 mls of 20 Units on Pitocin in 1 L NS Estimated Blood Loss (ml): 200 Maternal Complications: Seizures Provider Comments: VMI delivered in SANDRA presentation. No nuchal cord. SHoulders and body delivered without difficulty. cord doubly clamped and cut and infant to maternal abdomen for NRP. Placenta delivered spontaneously intact. 2nd degree perineal laceration repaired in usual fashion. FF at U after pitocin IV and 1000mcg of cytotec ND. baby to nursery. Mother and baby stable upon provider leaving the room. LABOR SUMMARY EDC: 05/23/2018 00:00 No. Babies in Womb: 1 Attempted: No Labor Anesthesia: Epidural LABOR INFORMATION Reason for Induction: Eclampsia Onset of Labor: 04/26/2018 21:50 Complete Dilatation: 04/26/2018 23:01 Cervical Ripening Agents: Fisher Balloon Oxytocin: Induction Group B Beta Strep: UNKNOWN Antibiotics # of Doses: 4 Antibiotics Time of Last Dose: 2125 Name of Antibiotic Given: PCN Steroids Given: None Reason Steroids Not Administered: Not Applicable MEMBRANES Membranes Rupture Method: Spontaneous Rupture of Membranes: 04/26/2018 17:27 Length of Rupture (hr): 5.83 Amniotic Fluid Color: Clear Amniotic Fluid Amount: Small Amniotic Fluid Odor: None STAGES OF LABOR Stage 1 hr: 1 Stage 1 min: 11 Stage 2 hr: 0 Stage 2 min: 16 Stage 3 hr: 0 Stage 3 min: 3 Total Time in Labor hr: 1 Total Time in Labor min: 30 VAGINAL DELIVERY Episiotomy: None Laceration #1: Perineal Laceration Extension #1: Second Degree Laceration Repair: Yes Laceration Repair Note: 2nd degree laceration repaired in usual fashion Sponge Count Correct: Yes Sharps Count Correct: Yes CSECTION DELIVERY Primary Indication: N/A Secondary Indication: N/A CSection Incidence: N/A Labor: N/A Elective: N/A CSection Incision: N/A BABY A INFORMATION Infant Delivery Date/Time: 04/26/2018 23:17 Method of Delivery: Vaginal Method of Delivery: Vaginal Born in Route : No : N/A Forceps: N/A Vacuum Extraction: N/A Shoulder Dystocia : No PRESENTATION/POSITION BABY A Presentation: Cephalic Cephalic Presentation: Vertex Vertex Position: Left Occipital Anterior Breech Presentation: N/A PLACENTA INFORMATION BABY A Placenta Delivery Time : 04/26/2018 23:20 Placenta Method of Delivery: Spontaneous Placenta Status: Delivered SCORES BABY A Heart Rate 1 min: >100 bpm Resp Effort 1 min: Good Cry Reflex Irritability 1 min: Grimace Muscle Tone 1 min: Flaccid Color 1 min: Body [place], Extremities Blue Resuscitation Effort 1 min: Tactile Stimulation SCORE 1 MIN: 6 Heart Rate 5 min: >100 bpm Resp Effort 5 min: Good Cry Reflex Irritability 5 min: Grimace Muscle Tone 5 min: Some Flexion of Extremities Color 5 min: Completely [place] SCORE 5 MIN: 8 INFORMATION BABY A Gestational Age at Delivery: 36.1 Gestational Status: Late - 34- 36.6 Weeks Outcome : Liveborn Condition : Stable Sex: Male Infant Sex: Male IDENTIFICATION BABY A Infant Verification Date/Time: 04/26/2018 23:44 ID Band Number: [id number] Mother's Name Verified: Yes RN Verifying : Gabe FORD RN, Additional Verifying Personnel: [employer]. [employer] W[employer]ER MACHINE WEIGHT/LENGTH BABY A Birthweight (gm): 2290 Weight (lb): 5 Infant Weight (oz): 1 Infant Length (in): 18.50 Length (cm): 46.99 CORD INFORMATION BABY A No. Cord Vessels: 3 Nuchal Cord : N/A Cord Blood Taken: Yes-For Storage (Mom's Blood type +) Infant Suction: None ASSESSMENT BABY A Skin to Skin: Yes BABY B INFORMATION : N/A SIGNATURES Signature: with User ID: [email or web address]
== END 2018-04-29 16:00 | disposition home or self-care (01) | DRG 805 ==
LOC: LC 07:26 → LR 08:11 → 2S 04-28 12:15
PROVIDERS: ADMIT Student in an Organized Health Care Education/Training Program; ATTEND Student in an Organized Health Care Education/Training Program
PROC: 10E0XZZ Delivery of Products of Conception, External Approach (ICD-10-PCS; principal; 2018-04-26)
PROC: 0KQM0ZZ Repair Perineum Muscle, Open Approach (ICD-10-PCS; 2018-04-26)
PROC: 3E033VJ Introduction of Other Hormone into Peripheral Vein, Percutaneous Approach (ICD-10-PCS; 2018-04-26)
PROC: 4A1HXCZ Monitoring of Products of Conception, Cardiac Rate, External Approach (ICD-10-PCS; 2018-04-26)
DX: O15.1 Eclampsia complicating labor (principal); O60.14X0 Preterm labor third trimester with preterm delivery third trimester, not applicable or unspecified; Z37.0 Single live birth; E87.1 Hypo-osmolality and hyponatremia; O70.1 Second degree perineal laceration during delivery; E83.52 Hypercalcemia; O26.893 Other specified pregnancy related conditions, third trimester; Z3A.36 36 weeks gestation of pregnancy
CPT/HCPCS: 36415; 70460; 70553; 80048; 80053; 80307; 81001; 82040; 82330; 82570; 83615; 83735; 84156; 84550; 85025; 85027; 85362; 85610; 85730; 86803; 86804; 86850; 86900; 86901; 87522; 88307; A9576; J0360; J2060; J2300; J2405; J2540; J2590; J3010; J3475; J3490

== ENCOUNTER → 2018-04-26 | Emergency (ER) | payer OTHER ==
--- NOTE | 2018-04-26 07:15 | ER Document Report ---
ED General - General Stated Complaint: POSSIBLE SEIZURE Time Seen by Provider: 04/26/18 07:12 - HPI Patient complains to provider of: Seizure activity in Notes: Patient presents today via EMS for seizure-like activity EMS states they received a phone call from the stating that the patient was having a seizure. Patient is currently 36 weeks . Patient is a according this patient was postictal upon her arrival. Upon her arrival here in ER patient is alert and oriented x3 patient does have a slight laceration to her tongue according to EMS. OB team is also at bedside and also evaluating the p atient. Patient denies any complaints denies fever chills nausea vomiting diarrhea denies any headaches. Patient denies any complications with her previous pregnancies. Patient denies a history of seizures in the past. - Related Data Allergies/Adverse Reactions: No Known Allergies Allergy (Unverified 04/26/18 08:41) Past Medical History - Social History Smoking Status: Unknown if Ever Smoked Family History: Other Review of Systems - Review of Systems Constitutional: No symptoms reported EENT: No symptoms reported Cardiovascular: No symptoms reported Respiratory: No symptoms reported Gastrointestinal: No symptoms reported Genitourinary: No symptoms reported Female Genitourinary: No symptoms reported Musculoskeletal: No symptoms reported Skin: No symptoms reported Hematologic/Lymphatic: No symptoms reported Neurological/Psychological: Seizure -: Yes All other systems reviewed and negative Physical Exam - Vital signs Interpretation: Normal - General General appearance: Appears well, Alert - HEENT Head: Normocephalic, Atraumatic Eyes: Normal Conjunctiva: Normal Cornea: Normal Eyelashes: Normal Pupils: PERRL Pharynx: Other - Patient with a small bite tony to the lateral border of the left side of the tongue Neck: Normal - Respiratory Respiratory status: No respiratory distress Chest status: Nontender Breath sounds: Normal Chest palpation: Normal - Cardiovascular Rhythm: Regular Heart sounds: Normal auscultation Murmur: No - Abdominal Inspection: Gravid female Distension: No distension Bowel sounds: Normal Tenderness: Nontender Organomegaly: No organomegaly - Back Back: Normal, Nontender - Extremities General upper extremity: Normal inspection, Nontender, Normal color, Normal ROM, Normal temperature General lower extremity: Normal inspection, Nontender, Normal color, Normal ROM, Normal temperature, Normal weight bearing. No: Woodrow's sign - Neurological Neuro grossly intact: Yes Cognition: Normal Orientation: AAOx4 [place] Coma Scale Eye Opening: Spontaneous [place] Coma Scale Verbal: Oriented [place] Coma Scale Motor: Obeys Commands [place] Coma Scale Total: 15 Speech: Normal Motor strength normal: LUE, RUE, LLE, RLE Sensory: Normal - Psychological Associated symptoms: Normal affect, Normal mood - Skin Skin Temperature: Warm Skin Moisture: Dry Skin Color: Normal Course - Re-evaluation Re-evalutation: 04/26/18 13:58 Dr. parks and our OB team is at bedside as well during evaluation. Patient has GCS 15 with airway intact. After brief examination of the patient discussion with the OB team they will take control of the patient's care will take her to the OB floor for presumptive diagnosis of eclampsia Critical Care Note - Critical Care Note Total time excluding time spent on procedures (mins): 10 Comments: Time spent bedside evaluating patient for presumptive diagnosis of eclampsia seizure at home while 36 weeks . Discharge - Discharge Clinical Impression: Seizure Qualifiers: Weeks of gestation: 36 weeks Qualified Code(s): Z3A.36 - 36 weeks gestation of Condition: Good Disposition: LABOR CHECK Admitting Provider: [facility] Unit Admitted: Labor and Delivery
== END | disposition admitted as inpatient to this hospital (09) ==
LOC: ER 07:07
DX: O26.893 Other specified pregnancy related conditions, third trimester (principal); R56.9 Unspecified convulsions; O9A.213 Injury, poisoning and certain other consequences of external causes complicating pregnancy, third trimester; S01.552A Open bite of oral cavity, initial encounter; W50.3XXA Accidental bite by another person, initial encounter; Z3A.36 36 weeks gestation of pregnancy
CPT/HCPCS: 99285